=== PATIENT | female | born 1955 | race Caucasian/White ===

== ENCOUNTER 2016-11-22 17:36 | Inpatient (IN) | payer MEDICARE, MEDICAID ==
[~2016-11-22] VITALS: Ht 152.4 cm; Wt 62.0 kg
--- NOTE | ~2016-11-22 | FD ---
ADMIT: 11/22/2016 RM/LOC: 305 [facility] MR#: [id number] [address] [id number] LARY FREITAS [address] [facility] [address] Final Diagnosis SEX: F AGE: 61 : 1955 ADMISSION DATE: 11/22/2016 DISCHARGE DATE: 11/24/2016 FINAL DIAGNOSES: 1. Intentional overdose with Seroquel. 2. Bipolar disorder. 3. Depression, chronic major. 4. Esophageal reflux disease. The patient was admitted on 11/22/2016, after her found her down at home and about 50 pills of her Seroquel were missing. She was treated in the ICU with close monitoring of her respiratory status. She did not require intubation. On 11/23, she was interviewed by Psychiatry and on 11/24/2016, she was transferred to [facility] for emergency protective custody and more intensive treatment for her depression and suicidal ideation. Rhonda Newton MD/ shiela JOB #: [id number] CC: Rhonda Newton MD, Attending Physician Rhonda Newton MD, Family Physician
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
[2016-11-25] MEDS ORDERED: PROTONIX40 MG PO (13:06)
--- NOTE | 2016-11-28 13:16 | ER ---
ADMIT: 11/22/2016 RM/LOC: 305 [facility] MR#: [id number] [address] [facility] [address] [place] [phone] LARY FREITAS [address] [place] [address] Emergency Room Report SEX: F AGE: 61 : 1955 DATE: 11/22/2016 SUBJECTIVE: A 61-year-old female, overdosed at an unknown time. told the paramedics that he thinks she had taken as many as 60 Seroquel. She is obtunded and minimally arousable, will not answer questions. She does open her eyes and track. She has had prior suicide attempts in the past. She suffers from schizophrenia, depression, and bipolar disorder. She does smoke cigarettes as well as marijuana. PHYSICAL EXAMINATION: GENERAL: A 61-year-old obtunded female, will open her eyes to command, but will not answer questions. HEENT: Her airway is intact. She does have a gag reflex. Her pupils are sluggishly reactive at 3 mm. She is slow to respond with a depressed affect. NEUROLOGIC: The patient will not cooperate for cranial nerves, no motor strength. LUNGS: Clear to auscultation bilaterally. CARDIOVASCULAR: Regular rate and rhythm. No murmurs, rubs, or gallops. EXTREMITIES: No signs of recent injury. ABDOMEN: Soft. EMERGENCY ROOM COURSE: EPC labs were obtained. The patient was started on oxygen. She will be admitted for drug overdose. Dmitriy Brown MD/ shiela JOB #: [id number] CC: Rhonda Newton MD, Attending Physician Rhonda Newton MD, Family Physician
--- NOTE | 2016-12-25 16:49 | HP ---
ADMIT: 11/22/2016 RM/LOC: 305 [facility] MR#: [id number] [address] [phone] LARY FREITAS [address] [place] [address] History and Physical SEX: F AGE: 61 : 1955 DATE OF SERVICE: CHIEF COMPLAINT: Obtunded. HISTORY OF PRESENT ILLNESS: This is a 61-year-old white female, normally cared for by Dr. Rhonda Newton in our office, who presented to the emergency room after overdose of Seroquel. She is obtunded. We cannot get any history. Her thinks she ingested unknown amount of Seroquel somewhere between 50 or 60 pills between noon and 5:00 p.m. He found her at 5, she initially would kind of wake up, but then he could not get her to arouse, so she was transported to the emergency room, where she is obtunded. She is maintaining her oxygen saturations on 6 L simple mask. Her heart rate is stable. Her EKG does not show any significant QT elongation. Therefore, she is being admitted to the ICU with suicide precautions. She is EPC hold. PAST MEDICAL HISTORY: Remarkable for bipolar disorder, depression, gastroesophageal reflux disease. PAST SURGICAL HISTORY: Include tonsillectomy, appendectomy, tubal ligation. She has also had a history of diverticulitis and pelvic inflammatory disease. CURRENT MEDICATIONS: Include: 1. Calcium 5 mg daily. 2. Potassium chloride 10 mEq b.i.d. 3. Ritalin 20 mg daily. 4. Olanzapine 5 mg b.i.d. 5. Clonazepam 1 mg p.o. b.i.d. p.r.n. 6. Topiramate 100 mg b.i.d. 7. Clonazepam 1 mg b.i.d. 8. Omeprazole 20 mg daily. 9. Bupropion XL 300 mg daily. 10.Pramipexole 1.5 mg half tab at bedtime. 11.Seroquel 50 mg b.i.d. 12.Zofran 4 mg p.o. p.r.n. ALLERGIES: NONE. FAMILY HISTORY: Father is unknown. Mother with depression. Grandmother with ovarian cancer and diabetes. SOCIAL HISTORY: She is a former smoker. Does smoke marijuana, mostly daily. Occasional alcohol use. REVIEW OF SYSTEMS: Unobtainable secondary to her obtunded mental state. OBJECTIVE: VITAL SIGNS: Blood pressure is 107/55, pulse 78, respirations 12, temp is 96.1. GENERAL: She is in no acute distress. She is obtunded, but she will arouse to auditory and tactile stimuli. When I ask her to open her eyes, she will ADMIT: 11/22/2016 RM/LOC: 305 [facility] MR#: [id number] [address] [id number] LARY FREITAS [address] [place] [address] History and Physical SEX: F AGE: 61 : 1955 barely open her eyes and then quickly fall back to sleep. She responds to sternal rub of course. EYES: Pupils are reactive. Conjunctivae are clear. NECK: Soft and supple. LUNGS: With decreased breath sounds, but appear clear. Normal respiratory effort. HEART: Regular rate and rhythm. ABDOMEN: Soft. It is nontender. EXTREMITIES: No cyanosis, no clubbing. There is no significant edema. SKIN: No rashes. NEUROLOGIC: Unobtainable secondary to mental status. LAB AND X-RAY DATA: Shows a white count of 9000, hemoglobin 10.3, platelets 418,000. UA negative. Urine drug screen is positive for benzodiazepines and cannabinoids. Sodium 145, potassium 3.6, chloride 112, CO2 of 26, BUN 9, creatinine 0.7, glucose 126, calcium 8.3, total bilirubin is 0.2, total protein 7.2, albumin 3.4, alkaline phosphatase 86, AST 11, ALT 17, calcium 8.8. Acetaminophen less than 2. Ethanol none detected. Free T4 of 0.84, TSH 2.38. Salicylate is less than 1.7. ASSESSMENT: 1. Seroquel overdose. 2. Bipolar disorder. 3. Depression. 4. Gastroesophageal reflux disease. PLAN: We will admit to the ICU with suicide precautions. She is on police hold. We will hydrate with IV normal saline. Monitor for cardiac or respiratory decompensation, and we will hold n.p.o. medications for right now and Dr. Newton will assume care in [facility]. Asa Kate MD/ shiela JOB #: [id number] CC: Rhonda Newton, Attending Physician Rhonda Newton, Family Physician
== END 2016-11-24 12:45 | DRG 918 ==
LOC: ER 17:36 → 3ICU 19:20
PROVIDERS: ADMIT Family Medicine
DX: T43.592A Poisoning by other antipsychotics and neuroleptics, intentional self-harm, initial encounter (principal); F31.9 Bipolar disorder, unspecified; K21.9 Gastro-esophageal reflux disease without esophagitis; K57.90 Diverticulosis of intestine, part unspecified, without perforation or abscess without bleeding; F12.90 Cannabis use, unspecified, uncomplicated; F43.20 Adjustment disorder, unspecified; Z87.891 Personal history of nicotine dependence